=== PATIENT | female | born 1985 | race Caucasian/White ===

== ENCOUNTER → 2022-10-06 | Outpatient (CLI) | payer OTHER ==
[~2022-10-06] MED LIST: GADOTERATE 0.5 MMOL/ML (CLARISCAN) 15 ML VIAL IV ONE
--- NOTE | 2022-10-06 11:49 | Diagnostic Imaging Report ---
Exam: MRI right hand without and with intravenous contrast. Date: October 06, 2022. Indication: 37-year-old female, history of rheumatoid arthritis. Right second finger pain. Comparison: None available. Technique: Multiple pre and postcontrast MRI sequences of the hand are obtained. Findings: There is fluid in the fourth and fifth digit flexor tendon sheaths consistent with tenosynovitis. There is no identified tendon tear. The joint spaces are well preserved. There is no joint effusion. There is no bone erosion. There is a subcortical cyst in the first metacarpal at its distal aspect. There is no acute fracture. There is no identified soft tissue mass or focal fluid collection. Impression: 1. Low level tenosynovitis of the fourth and fifth digit flexor tendons. Negative for tendon tear. 2. Well-preserved joint spaces without joint effusion or bone erosion to specifically suggest rheumatoid arthritis at the level of the right hand. 3. No identified soft tissue mass or focal fluid collection. 4. No acute osseous abnormality. Dictated by: Dictated on workstation # [id number]
== END ==
LOC: RAD 10:15
PROVIDERS: ATTEND Internal Medicine
DX: M65.841 Other synovitis and tenosynovitis, right hand (principal); M06.041 Rheumatoid arthritis without rheumatoid factor, right hand; M06.4 Inflammatory polyarthropathy
CPT/HCPCS: 73220